=== PATIENT | female | born 2000 | race Two or more races ===

== ENCOUNTER 2024-01-22 17:44 | Inpatient (IN) | payer MEDICAID ==
[~2024-01-22] VITALS: Ht 162.6 cm; Wt 93.4 kg
[2024-01-22] MEDS: levETIRAcetam 1000 mg/100ml 100 ML IV ONE (18:41)
[2024-01-22] MEDS: LORazepam 2MG/ML-1ML VIAL IV ONE (18:41)
[2024-01-22] MEDS: SODIUM CHLORIDE 0.9% 1,000 ML IV ONE (18:42)
[2024-01-22 18:58] VITALS: PULSE 102; RESP 14; O2SAT 95
[2024-01-22 19:06] LABS: Basophils # (auto) 0 10 ^3/uL (0-0.2); Basophils % (auto) 0.6 % (0.0-2.0); Eosinophils # (auto) 0.1 10 ^3/uL (0-0.8); Eosinophils % (auto) 0.8 % (0.0-7.0); Hematocrit 36.8 % (36.0-46.0); Hemoglobin 12.5 g/dL (12.2-16.2); Lymphocytes # (auto) 1.4 10 ^3/uL (0.4-5.4); Lymphocytes % (auto) 18.1 % (10.0-50.0); Mean Corpuscular Hemoglobin 31.6 pg (28.0-32.0); Mean Corpuscular Hgb Conc. 33.8 g/dL (32.0-36.0); Mean Corpuscular Volume 93.5 fL (80.0-100.0); Monocytes # (auto) 0.7 10 ^3/uL (0-1.3); Monocytes % (auto) 9.3 % (0.0-12.0); Neutrophils # (auto) 5.4 10 ^3/uL (1.6-8.6); Neutrophils % (auto) 71.2 % (37.0-80.0); Platelet Count (auto) 229 10^3/uL (140-450); Red Blood Cells 3.94 10^6/uL (4.0-5.20); Red Cell Distribution Width 13.5 % (11.8-14.3); White Blood Cell 7.5 10^3/uL (4.4-10.8)
[2024-01-22 19:15] LABS: Chloride 107 mmol/L (98-107); Potassium 4.1 mmol/L (3.5-5.1); Sodium 138 mmol/L (136-145)
[2024-01-22 19:16] LABS: Anion Gap 6 (5-15); Calcium 9.2 mg/dL (8.7-10.4); Carbon Dioxide 25 mmol/L (20-30)
[2024-01-22 19:21] LABS: BUN/Creatinine Ratio 17.6 (10.0-20.0); Blood Urea Nitrogen 16 mg/dL (9-23); Glucose 92 mg/dL (74-106)
[2024-01-22 19:40] VITALS: PULSE 102; O2SAT 99
[2024-01-22] MEDS ORDERED: ONDANSETRON HCL 4 MG/2 ML VIAL IV PRN (20:15)
[2024-01-22] MEDS ORDERED: TEMAZEPAM 15 MG CAP PO PRN (20:15)
[2024-01-22] MEDS: cefTRIAXone 1GM/50ML D5W 50 ML IV ONE (20:29)
[2024-01-22] MEDS: AZITHROMYCIN 500MG/ 250ML 250 ML IV ONE (21:47)
[2024-01-22] MEDS: CLINDAMYCIN 600MG IV 50 ML IV SCH (22:00)
[2024-01-22] MEDS: levETIRAcetam 500 MG TAB PO SCH (22:00)
[2024-01-22 23:10] LABS: COVID19 ANTIGEN SOFIA FIA NEGATIVE (NEGATIVE); Rapid Influenza A Negative (Negative); Rapid Influenza B Negative (Negative)
[2024-01-22] MEDS: levETIRAcetam 500 mg/100ml 100 ML IV ONE (23:43)
[2024-01-23] VITALS (12 sets, daily range): BP systolic 96–131; BP diastolic 62–87; PULSE 67–92; RESP 16–21; TEMP 97.1–98.4; O2SAT 24–100
[2024-01-23 09:07] LABS: Basophils # (auto) 0 10 ^3/uL (0-0.2); Basophils % (auto) 0.7 % (0.0-2.0); Eosinophils # (auto) 0.2 10 ^3/uL (0-0.8); Eosinophils % (auto) 2.5 % (0.0-7.0); Hematocrit 36.3 % (36.0-46.0); Hemoglobin 12.8 g/dL (12.2-16.2); Lymphocytes # (auto) 1.5 10 ^3/uL (0.4-5.4); Lymphocytes % (auto) 22.6 % (10.0-50.0); Mean Corpuscular Hemoglobin 33.1 pg (28.0-32.0); Mean Corpuscular Hgb Conc. 35.2 g/dL (32.0-36.0); Mean Corpuscular Volume 93.9 fL (80.0-100.0); Monocytes # (auto) 0.6 10 ^3/uL (0-1.3); Monocytes % (auto) 9.2 % (0.0-12.0); Neutrophils # (auto) 4.4 10 ^3/uL (1.6-8.6); Platelet Count (auto) 236 10^3/uL (140-450); Red Blood Cells 3.87 10^6/uL (4.0-5.20); Red Cell Distribution Width 13.9 % (11.8-14.3); White Blood Cell 6.8 10^3/uL (4.4-10.8)
[2024-01-23 09:15] LABS: Anion Gap 4 (5-15); Carbon Dioxide 25 mmol/L (20-30); Chloride 109 mmol/L (98-107); Potassium 3.7 mmol/L (3.5-5.1); Sodium 138 mmol/L (136-145)
[2024-01-23 09:16] LABS: Calcium 8.6 mg/dL (8.7-10.4)
[2024-01-23 09:21] LABS: BUN/Creatinine Ratio 12.1 (10.0-20.0); Blood Urea Nitrogen 8 mg/dL (9-23); Glucose 86 mg/dL (74-106)
[2024-01-23] MEDS: ENOXAPARIN SOD 40 MG/0.4 ML SYRINGE SC SCH (10:00)
[2024-01-23] MEDS: cefTRIAXone 1GM/50ML D5W 50 ML IV SCH (10:47)
[2024-01-23] MEDS: LACTATED RINGER'S 1,000 ML IV SCH (13:17)
[2024-01-23] MEDS ORDERED: IPRATROPIUM BROM 0.5 MG/2.5ML INH SOL NEB PRN (13:45)
[2024-01-23 14:12] LABS: Magnesium 1.9 mg/dL (1.6-2.6)
[2024-01-23 14:14] LABS: Phosphorus 2.4 mg/dL (2.4-5.1)
[2024-01-23] MEDS: THIAMINE 100mg/ml INJ (200mg/2ml VIAL) IM ONE (14:52)
[2024-01-23 22:10] LABS: Urine Bacteria None Seen /hpf (None Seen)
[2024-01-23 22:20] LABS: Urine Amorphous Crystal FEW /hpf (None Seen); Urine Blood Negative /uL (Negative); Urine Clarity Turbid (Clear); Urine Color Yellow (Yellow); Urine Mucus FEW (None Seen); Urine Protein, UAD Negative (Negative); Urine Specific Gravity 1.025 (1.001-1.035); Urine Urobilinogen Normal (Negative); Urine WBC 10 /hpf (0 - 5); Urine pH 6.5 (5.0-9.0)
[2024-01-23 22:30] LABS: Amphetamine Screen, Urine Pos (NEGATIVE); Barbiturate Scree,Urine Neg (NEGATIVE); Benzodiazephine Screen, Urine Neg (NEGATIVE)
[2024-01-23 22:31] LABS: Cannabinoid Screen, Urine Pos (NEGATIVE); Cocaine Screen, Urine Neg (NEGATIVE); Opiate Scree,Urine Neg (NEGATIVE); Phencyclidine Screen, Urine Neg (NEGATIVE)
[2024-01-24] VITALS (10 sets, daily range): BP systolic 105–117; BP diastolic 58–81; PULSE 68–93; RESP 16–20; TEMP 97.7–98.4; O2SAT 96–100
[2024-01-24 11:03] LABS: Basophils # (auto) 0 10 ^3/uL (0-0.2); Basophils % (auto) 0.4 % (0.0-2.0); Eosinophils # (auto) 0.1 10 ^3/uL (0-0.8); Eosinophils % (auto) 1.4 % (0.0-7.0); Hematocrit 36.3 % (36.0-46.0); Hemoglobin 12.4 g/dL (12.2-16.2); Lymphocytes # (auto) 1.7 10 ^3/uL (0.4-5.4); Lymphocytes % (auto) 25.4 % (10.0-50.0); Mean Corpuscular Hemoglobin 31.9 pg (28.0-32.0); Mean Corpuscular Hgb Conc. 34.2 g/dL (32.0-36.0); Mean Corpuscular Volume 93.1 fL (80.0-100.0); Monocytes # (auto) 0.7 10 ^3/uL (0-1.3); Monocytes % (auto) 10.3 % (0.0-12.0); Neutrophils # (auto) 4.2 10 ^3/uL (1.6-8.6); Neutrophils % (auto) 62.5 % (37.0-80.0); Nucleated Red Blood Cells % 0.1 %; Platelet Count (auto) 235 10^3/uL (140-450); Red Cell Distribution Width 13.7 % (11.8-14.3); White Blood Cell 6.7 10^3/uL (4.4-10.8)
[2024-01-24 11:20] LABS: INR 1.13 (0.9-1.15); Partial Thromboplastin Time 27.7 SEC (24.5-34.5); Prothrombin Time 11.9 sec (9.3-11.8)
[2024-01-24 11:21] LABS: Alanine Aminotransferase 22 U/L (7-40); Albumin 3.7 g/dL (3.2-4.8); Alkaline Phosphatase 65 U/L (46-116); Anion Gap 1 (5-15); Aspartate Aminotransferase 15 U/L (13-40); BUN/Creatinine Ratio 11.8 (10.0-20.0); Blood Urea Nitrogen 8 mg/dL (9-23); Carbon Dioxide 26 mmol/L (20-30); Chloride 109 mmol/L (98-107); Cholesterol 114 mg/dL (< 200); Glucose 101 mg/dL (74-106); Potassium 4.2 mmol/L (3.5-5.1); Sodium 136 mmol/L (136-145); Triglycerides 52 mg/dL (< 150)
[2024-01-24 11:22] LABS: LDL Cholesterol 50 mg/dL (< 100); Magnesium 1.7 mg/dL (1.6-2.6); Total Protein 6.2 g/dL (5.7-8.2)
[2024-01-24 11:23] LABS: Bilirubin, Total 0.5 mg/dL (0.2-1.0); HDL Cholesterol 53 mg/dL (40-59)
[2024-01-24] MEDS: ACETAMINOPHEN 325 MG TAB PO PRN (20:38)
[2024-01-24] MEDS: SODIUM PHOSPHATES 20 MEQ in SODIUM CHL 0.9% 100 ML IV ONE (23:29)
[2024-01-25] VITALS (10 sets, daily range): BP systolic 96–120; BP diastolic 53–79; PULSE 54–91; RESP 16–20; TEMP 97.9–98.5; O2SAT 97–100
[2024-01-25 07:05] LABS: Basophils # (auto) 0 10 ^3/uL (0-0.2); Basophils % (auto) 0.6 % (0.0-2.0); Eosinophils # (auto) 0.1 10 ^3/uL (0-0.8); Eosinophils % (auto) 1.8 % (0.0-7.0); Hematocrit 36.7 % (36.0-46.0); Hemoglobin 12.6 g/dL (12.2-16.2); Lymphocytes # (auto) 2.2 10 ^3/uL (0.4-5.4); Lymphocytes % (auto) 36.4 % (10.0-50.0); Mean Corpuscular Hemoglobin 32.4 pg (28.0-32.0); Mean Corpuscular Hgb Conc. 34.4 g/dL (32.0-36.0); Mean Corpuscular Volume 94.2 fL (80.0-100.0); Monocytes # (auto) 0.6 10 ^3/uL (0-1.3); Monocytes % (auto) 9.9 % (0.0-12.0); Neutrophils # (auto) 3.2 10 ^3/uL (1.6-8.6); Neutrophils % (auto) 51.3 % (37.0-80.0); Nucleated Red Blood Cells % 0.1 %; Platelet Count (auto) 243 10^3/uL (140-450); Red Cell Distribution Width 13.9 % (11.8-14.3); White Blood Cell 6.2 10^3/uL (4.4-10.8)
[2024-01-25 07:09] LABS: Anion Gap 5 (5-15); Calcium 8.8 mg/dL (8.7-10.4); Carbon Dioxide 24 mmol/L (20-30); Chloride 108 mmol/L (98-107); Potassium 4.1 mmol/L (3.5-5.1); Sodium 137 mmol/L (136-145)
[2024-01-25 07:14] LABS: Glucose 97 mg/dL (74-106)
[2024-01-25 07:15] LABS: BUN/Creatinine Ratio 12.1 (10.0-20.0); Blood Urea Nitrogen 8 mg/dL (9-23); Magnesium 1.8 mg/dL (1.6-2.6)
[2024-01-25 07:17] LABS: Phosphorus 2.7 mg/dL (2.4-5.1)
[2024-01-25 11:15] LABS: Free T3 2.59 pg/mL (2.3-4.2); Free T4 (Free Thyroxine) 1.09 ng/dL (0.89-1.76)
[2024-01-25] MEDS ORDERED: HYDR50CA2 PO (14:08)
[2024-01-25] MEDS ORDERED: PRAZ1CAP2 PO (14:08)
[2024-01-25] MEDS ORDERED: LEVE1TAB38 PO (14:08)
[2024-01-25] MEDS ORDERED: KEP500T PO (15:40)
[2024-01-25] MEDS ORDERED: ACET-1882 PO (15:40)
[2024-01-26] VITALS (9 sets, daily range): BP systolic 96–118; BP diastolic 58–75; PULSE 72–99; RESP 17–20; TEMP 97.7–98.7; O2SAT 80–100
[2024-01-26 08:04] LABS: Chloride 108 mmol/L (98-107); Potassium 3.7 mmol/L (3.5-5.1); Sodium 139 mmol/L (136-145)
[2024-01-26 08:05] LABS: Anion Gap 4 (5-15); Carbon Dioxide 27 mmol/L (20-30)
[2024-01-26 08:06] LABS: Calcium 8.9 mg/dL (8.7-10.4)
[2024-01-26 08:10] LABS: BUN/Creatinine Ratio 13.2 (10.0-20.0); Blood Urea Nitrogen 10 mg/dL (9-23); Glucose 82 mg/dL (74-106)
[2024-01-26] MEDS: ASPirin 81 mg TAB PO ONE (12:37)
[2024-01-26] MEDS: ATORVASTATIN 20 MG TAB PO SCH (21:16)
[2024-01-27 01:00] VITALS: BP 113/75; PULSE 75; RESP 16; TEMP 97.3; O2SAT 99
[2024-01-27 05:00] VITALS: BP 125/65; PULSE 82; RESP 18; TEMP 98; O2SAT 100
[2024-01-27 06:52] VITALS: O2SAT 98
[2024-01-27 07:36] LABS: Chloride 107 mmol/L (98-107); Potassium 4.2 mmol/L (3.5-5.1); Sodium 137 mmol/L (136-145)
[2024-01-27 07:37] LABS: Anion Gap 8 (5-15); Calcium 9.1 mg/dL (8.7-10.4); Carbon Dioxide 22 mmol/L (20-30)
[2024-01-27 07:42] LABS: BUN/Creatinine Ratio 17.5 (10.0-20.0); Blood Urea Nitrogen 14 mg/dL (9-23); Glucose 85 mg/dL (74-106)
[2024-01-27 08:03] LABS: Basophils # (auto) 0.1 10 ^3/uL (0-0.2); Eosinophils # (auto) 0.1 10 ^3/uL (0-0.8); Eosinophils % (auto) 1.3 % (0.0-7.0); Hematocrit 39.1 % (36.0-46.0); Hemoglobin 13.5 g/dL (12.2-16.2); Lymphocytes # (auto) 2.6 10 ^3/uL (0.4-5.4); Lymphocytes % (auto) 40.1 % (10.0-50.0); Mean Corpuscular Hemoglobin 32.6 pg (28.0-32.0); Mean Corpuscular Hgb Conc. 34.6 g/dL (32.0-36.0); Mean Corpuscular Volume 94.2 fL (80.0-100.0); Monocytes # (auto) 0.7 10 ^3/uL (0-1.3); Monocytes % (auto) 10.9 % (0.0-12.0); Neutrophils # (auto) 3.1 10 ^3/uL (1.6-8.6); Neutrophils % (auto) 46.7 % (37.0-80.0); Nucleated Red Blood Cells % 0.1 %; Platelet Count (auto) 270 10^3/uL (140-450); Red Blood Cells 4.15 10^6/uL (4.0-5.20); White Blood Cell 6.6 10^3/uL (4.4-10.8)
[2024-01-27] MEDS: ASPirin 81 mg TAB PO SCH (08:57)
[2024-01-27 09:00] VITALS: BP 110/69; PULSE 85; RESP 20; TEMP 98.1; O2SAT 99
[2024-01-27 14:45] VITALS: BP 97/61; PULSE 93; RESP 20; TEMP 98; O2SAT 99
== END 2024-01-27 15:40 | disposition home or self-care (01) | DRG 53 ==
LOC: EDUNIT# 17:44 → ER 17:44 → EDBD 17:44 → OVERFLOW 20:11 → CENTRAL 23:44 → TELE-CENTR 01-24 01:37 → CENTRAL 01-26 01:53
PROVIDERS: ADMIT Internal Medicine Pulmonary Disease; ATTEND Internal Medicine Pulmonary Disease
DX: G40.909 Epilepsy, unspecified, not intractable, without status epilepticus (principal); J96.01 Acute respiratory failure with hypoxia; J69.0 Pneumonitis due to inhalation of food and vomit; F19.90 Other psychoactive substance use, unspecified, uncomplicated; Z20.822 Contact with and (suspected) exposure to COVID-19; E66.01 Morbid (severe) obesity due to excess calories; Z91.199 Patient's noncompliance with other medical treatment and regimen due to unspecified reason; Z59.00 Homelessness unspecified; Z68.35 Body mass index [BMI] 35.0-35.9, adult; Z79.899 Other long term (current) drug therapy
CPT/HCPCS: 36415; 70450; 70551; 71045; 80048; 80053; 80061; 80307; 81001; 82040; 82140; 82306; 82542; 82607; 82962; 83036; 83605; 83735; 83880; 84100; 84439; 84443; 84481; 84702; 85025; 85610; 85730; 87070; 87205; 87426; 87804; 93005; 93306; 93886; G0378; J3490